=== PATIENT | female | born 1955 | race Caucasian/White ===

== ENCOUNTER 2022-03-05 06:56 | Outpatient (CLI) | payer MEDICARE, OTHER, SELFPAY ==
--- NOTE | 2022-03-05 08:03 | W.ANESCHARGE ---
Anesthesia Charges Start Date/Time Anesthesia Start Date: 03/05/22 Anesthesia Start Time: 07:42 Stop Date/Time Anesthesia Stop Date: 03/05/22 Anesthesia Stop Time: 08:03 Summary Emergency: No
--- NOTE | 2022-03-05 08:05 | W.ANESCHARGE ---
Anesthesia Charges Start Date/Time Anesthesia Start Date: 03/05/22 Anesthesia Start Time: 07:42 Stop Date/Time Anesthesia Stop Date: 03/05/22 Anesthesia Stop Time: 08:03 Summary Emergency: No
== END 2022-03-05 06:57 | disposition home or self-care (01) ==
PROVIDERS: PCP Physician Assistant Medical; Visit Provider Surgery
DX: K31.89 Other diseases of stomach and duodenum (principal); K31.7 Polyp of stomach and duodenum; Z87.19 Personal history of other diseases of the digestive system
CPT/HCPCS: 00731; 43239; 88302; J2405; J2704; J3490

== ENCOUNTER 2022-03-19 14:30 | Outpatient (RCR) | payer MEDICAID, SELFPAY | END 2023-03-04 12:38 | disposition home or self-care (01) | LOC: MOW 14:30 | PROVIDERS: PCP Physician Assistant Medical; Visit Provider Physician Assistant Medical | DX: Z76.0 Encounter for issue of repeat prescription (principal) | CPT/HCPCS: S5170 ==

== ENCOUNTER → 2024-03-07 09:35 | Outpatient (RCR) | payer MEDICAID, SELFPAY | END | disposition home or self-care (01) | LOC: MOW 03-05 07:01 | PROVIDERS: PCP Physician Assistant Medical; Visit Provider Physician Assistant Medical | DX: Z76.0 Encounter for issue of repeat prescription (principal) | CPT/HCPCS: S5170 ==

== ENCOUNTER 2024-03-07 09:40 | Outpatient (RCR) | payer MEDICAID, SELFPAY | END 2025-03-04 23:59 | disposition home or self-care (01) | LOC: MOW 09:40 | PROVIDERS: PCP Physician Assistant Medical; Visit Provider Physician Assistant Medical | DX: Z76.0 Encounter for issue of repeat prescription (principal) | CPT/HCPCS: S5170 ==